=== PATIENT | male | born 1960 | race Caucasian/White ===

== ENCOUNTER 2020-09-28 01:16 | Emergency (ER) | payer BC ==
[~2020-09-28] VITALS: Ht 165.1 cm; Wt 98.9 kg
[~2020-09-28 01:16] MED LIST: ALDACTONE25 MG PO; ASPIRIN CHEW81 MG PO; COENZYME Q10; COZAAR100 MG PO; DOXYCYCLINE HY100 M4 PO; EFFEXOR XR75 MG PO; FUROSEMIDE40 MG PO; HYDRALAZINE HCL25 MG PO; NORVASC5 MG PO; PREDNISONE10 MG PO; Rosuvastatin Calcium PO; SPIRIVA18 MCG INH; SYMBICORT 16010.2 GM; TRAZODONE HCL50 MG PO; VICTOZA 2-0.6 MG/0.1 SQ; Z.0.HYDROCHLOROTHIA2 PO; Z.0.JANUMET XR 50-1; Z.0.LIPITOR20 MG PO; Z.0.LOTREL 5-20 MG1 PO; Z.0.PRILOSEC OTC20 M PO; [UNRECOGNIZED DRUG - CODE]; [UNRECOGNIZED DRUG - OTHER]; [UNRECOGNIZED DRUG - OTHER]; [UNRECOGNIZED DRUG - OTHER]
[2020-09-28] MEDS ORDERED: SODIUM CHLORIDE 0.9% 1000ML 1,000 ML IV ONE ×2 (01:30→02:00)
[2020-09-28 01:41] LABS: BASOPHILS # (AUTO) 0.1 (0.0-0.1); BASOPHILS % 0.9 % (0.0-1.0); EOSINOPHILS # (AUTO) 0.2 (0.0-0.4); EOSINOPHILS % 1.5 % (0.0-6.0); HEMATOCRIT 29.8 % (38.2-49.6); HEMOGLOBIN 9.4 g/dL (14.0-18.0); MEAN CORPUSCULAR HEMOGLOBIN 27.3 pg (28-32); MEAN CORPUSCULAR HGB CONC 31.5 g/dL (31-35); MEAN CORPUSCULAR VOLUME 86.6 fL (81-99); MONOCYTES # (AUTO) 1.2 (0.2-0.8); NEUTROPHILS # (AUTO) 11.7 (2.1-6.9); NEUTROPHILS % 75.3 % (38.7-80.0); PLATELET COUNT 395 x10e3/uL (140-360); RED BLOOD COUNT 3.44 x10e6/uL (4.3-5.7); RED CELL DISTRIBUTION WIDTH 13.6 % (11.7-14.4)
[2020-09-28 01:50] LABS: INR 0.88; PARTIAL THROMBOPLASTIN TIME 21.8 seconds (23.8-35.5); PROTHROMBIN TIME 12.5 seconds (11.9-14.5)
[2020-09-28 01:58] LABS: AMYLASE 51 U/L (25-125); LIPASE 44 U/L (8-78)
[2020-09-28 02:02] LABS: ANION GAP 15.7 mmol/L (8-16); CALCIUM 8.7 mg/dL (8.4-10.2); CREATININE, SERUM 1.44 mg/dL (0.72-1.25); POTASSIUM 4.7 mmol/L (3.5-5.1)
[2020-09-28] MEDS ORDERED: IOPAMIDOL 370 MG/ML 200 ML INFUS..BTL INJ ONE (02:33)
[2020-09-28] MEDS ORDERED: SODIUM CHLORIDE 0.9% 100 ML ONE (02:33)
== END 2020-09-28 06:06 | disposition other institution (70) ==
LOC: ER 01:26
DX: K62.5 Hemorrhage of anus and rectum (principal); D64.9 Anemia, unspecified; K57.30 Diverticulosis of large intestine without perforation or abscess without bleeding; Z20.822 Contact with and (suspected) exposure to COVID-19; I10 Essential (primary) hypertension; E78.5 Hyperlipidemia, unspecified; K21.9 Gastro-esophageal reflux disease without esophagitis; J45.909 Unspecified asthma, uncomplicated
CPT/HCPCS: 36415; 74174; 80053; 82150; 82550; 82553; 83605; 83690; 84484; 85025; 85610; 85730; 86850; 86900; 87040; 93005; 99284; J7030; J7050; Q9967; U0002

== ENCOUNTER 2024-07-06 15:30 | Inpatient (IN) | payer BC ==
[~2024-07-06] VITALS: Ht 165.1 cm; Wt 102.5 kg
[~2024-07-06 15:30] MED LIST changes: +ATORVASTATIN CA40 MG PO; +AZITHROMYCIN250 MG PO; +COZAAR25 MG PO; +FLOMAX0.4 MG PO; +GLIMEPIRIDE2 MG PO; +ISOSORBIDE MONO30 MG PO; +LASIX40 MG PO; +LOSARTAN POTAS100 MG PO; +METFORMIN HCL500 MG PO; +METOPROLOL SUCC25 MG PO; +PLAQUENIL200 MG PO; +SPIRONOLACTONE25 MG PO
[2024-07-06 16:16] LABS: BASOPHILS # (AUTO) 0.1 (0.0-0.1); BASOPHILS % 0.7 % (0.0-1.0); EOSINOPHILS # (AUTO) 0.2 (0.0-0.4); EOSINOPHILS % 1.8 % (0.0-6.0); HEMATOCRIT 39.1 % (38.2-49.6); HEMOGLOBIN 12.5 g/dL (14.0-18.0); LYMPHOCYTES # (AUTO) 0.8 (1.0-3.2); LYMPHOCYTES % 7.1 % (18.0-39.1); MEAN CORPUSCULAR HEMOGLOBIN 28.5 pg (28-32); MEAN CORPUSCULAR VOLUME 89.1 fL (81-99); MONOCYTES # (AUTO) 0.8 (0.2-0.8); MONOCYTES % 7.6 % (4.4-11.3); NEUTROPHILS # (AUTO) 8.9 (2.1-6.9); NEUTROPHILS % 82.4 % (38.7-80.0); PLATELET COUNT 362 x10e3/uL (140-360); RED BLOOD COUNT 4.39 x10e6/uL (4.3-5.7); RED CELL DISTRIBUTION WIDTH 13.2 % (11.7-14.4); WHITE BLOOD COUNT 10.78 x10e3/uL (4.8-10.8)
[2024-07-06] MEDS: FUROSEMIDE INJ 10 MG/ML 4 ML VIAL IV ONE (16:19)
[2024-07-06 16:43] LABS: ANION GAP 16.2 mmol/L (8-16); BILIRUBIN,TOTAL 0.4 mg/dL (0.2-1.2); CALCIUM 10.1 mg/dL (8.4-10.2); CREATININE, SERUM 1.35 mg/dL (0.72-1.25); POTASSIUM 4.2 mmol/L (3.5-5.1)
[2024-07-06 16:50] LABS: TROPONIN I 0.004 ng/mL (0-0.300)
[2024-07-06 18:00] VITALS: TEMP 98.8
[2024-07-06] MEDS: ASPIRIN 81 MG CHEW TAB PO ONE (18:15)
[2024-07-06 19:22] VITALS: PULSE 88; RESP 24; O2SAT 96
[2024-07-06 20:05] VITALS: PULSE 98; RESP 18
[2024-07-06 22:00] VITALS: BP_SYST 121; BP_DIAS 80; BP_DIAS 81; PULSE 95; RESP 22; TEMP 98.8; O2SAT 96
[2024-07-07] VITALS (12 sets, daily range): BP systolic 90–123; BP diastolic 56–80; PULSE 88–110; RESP 19–25; TEMP 97.9–99; O2SAT 91–100
[2024-07-07] MEDS: ALBUTEROL/IPRATROPIUM 3 ML NEB NEB SCH (00:29)
[2024-07-07] MEDS: BENZONATATE 100 MG CAP PO PRN (00:57)
[2024-07-07] MEDS: FUROSEMIDE INJ 10 MG/ML 4 ML VIAL IV ONE (00:58)
[2024-07-07] MEDS ORDERED: ENTRESTO 24 MG1 EACH (02:21)
[2024-07-07] MEDS ORDERED: PROTONIX20 MG PO (02:21)
[2024-07-07] MEDS ORDERED: CLOPIDOGREL75 MG PO (02:21)
[2024-07-07] MEDS ORDERED: VERQUVO5 MG PO (02:21)
[2024-07-07] MEDS ORDERED: ROSUVASTATIN CA20 MG (02:22)
[2024-07-07] MEDS ORDERED: ALBUTEROL/IPRATROPIUM 3 ML NEB NEB SCH (03:00)
[2024-07-07 05:37] LABS: BASOPHILS # (AUTO) 0.1 (0.0-0.1); BASOPHILS % 0.7 % (0.0-1.0); EOSINOPHILS # (AUTO) 0.1 (0.0-0.4); EOSINOPHILS % 1.5 % (0.0-6.0); HEMATOCRIT 35.5 % (38.2-49.6); HEMOGLOBIN 11.3 g/dL (14.0-18.0); LYMPHOCYTES % 10.5 % (18.0-39.1); MEAN CORPUSCULAR HEMOGLOBIN 28.3 pg (28-32); MEAN CORPUSCULAR HGB CONC 31.8 g/dL (31-35); MONOCYTES # (AUTO) 0.9 (0.2-0.8); MONOCYTES % 9.6 % (4.4-11.3); NEUTROPHILS % 77.4 % (38.7-80.0); PLATELET COUNT 310 x10e3/uL (140-360); RED BLOOD COUNT 3.99 x10e6/uL (4.3-5.7); RED CELL DISTRIBUTION WIDTH 13.2 % (11.7-14.4); WHITE BLOOD COUNT 9.05 x10e3/uL (4.8-10.8)
[2024-07-07 06:06] LABS: CALCIUM 9.2 mg/dL (8.4-10.2); CREATININE, SERUM 1.42 mg/dL (0.72-1.25)
[2024-07-07 06:45] LABS: TROPONIN I 0.001 ng/mL (0-0.300)
[2024-07-07 12:27] LABS: TROPONIN I 0.007 ng/mL (0-0.300)
[2024-07-07] MEDS: FUROSEMIDE INJ 10 MG/ML 4 ML VIAL IV SCH (15:12)
[2024-07-07] MEDS ORDERED: POLYETHYLENE GLYCOL 3350 17 GM PACK PO PRN (18:15)
[2024-07-07] MEDS ORDERED: ACETAMINOPHEN 325 MG TAB PO PRN (18:15)
[2024-07-07] MEDS ORDERED: HYDRALAZINE HCL 20 MG/ML VIAL IV PRN (18:15)
[2024-07-07] MEDS ORDERED: TEMAZEPAM 7.5 MG CAP PO PRN ×2 (18:15→21:00)
[2024-07-07] MEDS ORDERED: DEXTROSE 50% SYRINGE 50 ML IV PRN (18:15)
[2024-07-07] MEDS: METHYLPREDNISOLONE SOD SUCC 40 MG/ML VIAL 1ML IV ONE (18:21)
[2024-07-07] MEDS: ALBUTEROL/IPRATROPIUM 3 ML NEB NEB PRN (20:15)
[2024-07-07] MEDS: BUDESONIDE/FORMOTEROL 160/4.5MCG INHALER INH SCH (20:16)
[2024-07-07] MEDS ORDERED: TRAZODONE HCL 50 MG TAB PO PRN (21:00)
[2024-07-07] MEDS: INSULIN REGULAR, HUMAN 100 UNIT/1 ML SQ SCH (21:00)
[2024-07-07] MEDS: ATORVASTATIN 40 MG TAB PO SCH (21:18)
[2024-07-07] MEDS: SACUBITRIL/VALSARTAN 24MG/26MG 1 EA TAB PO SCH (21:18)
[2024-07-07] MEDS: TRAZODONE HCL 50 MG TAB PO PRN (21:18)
[2024-07-07] MEDS: GUAIFENESIN/CODEINE 5 ML LIQD PO PRN (21:18)
[2024-07-08] VITALS (9 sets, daily range): BP systolic 90–133; BP diastolic 59–81; PULSE 97–113; RESP 19–23; TEMP 97.6–98.5; O2SAT 92–97
[2024-07-08 05:33] LABS: BASOPHILS % 0.4 % (0.0-1.0); HEMATOCRIT 36.4 % (38.2-49.6); HEMOGLOBIN 11.6 g/dL (14.0-18.0); LYMPHOCYTES # (AUTO) 0.8 (1.0-3.2); LYMPHOCYTES % 9.9 % (18.0-39.1); MEAN CORPUSCULAR HEMOGLOBIN 28.2 pg (28-32); MEAN CORPUSCULAR HGB CONC 31.9 g/dL (31-35); MEAN CORPUSCULAR VOLUME 88.6 fL (81-99); MONOCYTES # (AUTO) 0.5 (0.2-0.8); MONOCYTES % 5.9 % (4.4-11.3); NEUTROPHILS # (AUTO) 6.6 (2.1-6.9); NEUTROPHILS % 83.3 % (38.7-80.0); PLATELET COUNT 352 x10e3/uL (140-360); RED BLOOD COUNT 4.11 x10e6/uL (4.3-5.7); RED CELL DISTRIBUTION WIDTH 13.3 % (11.7-14.4); WHITE BLOOD COUNT 7.95 x10e3/uL (4.8-10.8)
[2024-07-08 06:11] LABS: ALBUMIN 3.6 g/dL (3.5-5.0); ANION GAP 15.3 mmol/L (8-16); BILIRUBIN,TOTAL 0.2 mg/dL (0.2-1.2); CALCIUM 9.5 mg/dL (8.4-10.2); CHOL/HDL RATIO 2.4 (3.9-4.7); CREATININE, SERUM 1.41 mg/dL (0.72-1.25); MAGNESIUM 2.1 MG/DL (1.3-2.1); PHOSPHORUS 3.4 MG/DL (2.3-4.7); POTASSIUM 4.3 mmol/L (3.5-5.1); TOTAL PROTEIN 7.3 g/dL (6.5-8.1)
[2024-07-08 06:19] LABS: FREE T4 (FREE THYROXINE) 1.02 ng/dL (0.8-1.8); THYROID STIMULATING HORMONE 0.356 uIU/mL (0.350-4.940)
[2024-07-08] MEDS: GLIMEPIRIDE 2 MG TAB PO SCH (09:00)
[2024-07-08] MEDS: CLOPIDOGREL BISULFATE 75 MG TAB PO SCH (09:01)
[2024-07-08] MEDS: PANTOPRAZOLE SOD 40 MG TABEC PO SCH (09:01)
[2024-07-08] MEDS: ASPIRIN 81 MG CHEW TAB PO SCH (09:01)
[2024-07-08] MEDS: TAMSULOSIN HCL 0.4 MG CAP PO SCH (09:01)
[2024-07-08] MEDS: HYDROXYCHLOROQUINE SULFATE 200 MG TAB PO SCH (09:02)
[2024-07-08] MEDS: METFORMIN HCL 500 MG TAB PO SCH (09:02)
[2024-07-08] MEDS: DOCUSATE SODIUM 100 MG CAP PO SCH (09:02)
[2024-07-08] MEDS: METHYLPREDNISOLONE SOD SUCC 125 MG/2ML VIAL IV ONE (09:30)
[2024-07-08] MEDS: TEMAZEPAM 15 MG CAP PO PRN (21:24)
[2024-07-09] VITALS (8 sets, daily range): BP systolic 99–124; BP diastolic 55–82; PULSE 78–117; RESP 20–21; TEMP 97.9–98.2; O2SAT 94–97
[2024-07-09] MEDS: METHYLPREDNISOLONE SOD SUCC 125 MG/2ML VIAL IV ONE (11:26)
[2024-07-09] MEDS: BENZONATATE 100 MG CAP PO SCH (11:26)
[2024-07-09] MEDS: GUAIFENESIN/CODEINE 5 ML LIQD PO STA (11:26)
[2024-07-09] MEDS: ONDANSETRON HCL INJ 2MG/ML 2ML 2 MG/ML VIAL IV PRN (19:55)
[2024-07-09] MEDS: METHYLPREDNISOLONE SOD SUCC 40 MG/ML VIAL 1ML IV SCH (21:25)
[2024-07-10] VITALS (10 sets, daily range): BP systolic 100–132; BP diastolic 61–75; PULSE 68–98; RESP 18–21; TEMP 98.1–98.8; O2SAT 94–100
[2024-07-10 07:12] LABS: BASOPHILS % 0.2 % (0.0-1.0); HEMATOCRIT 39.9 % (38.2-49.6); HEMOGLOBIN 12.6 g/dL (14.0-18.0); LYMPHOCYTES % 5.1 % (18.0-39.1); MEAN CORPUSCULAR HEMOGLOBIN 28.4 pg (28-32); MEAN CORPUSCULAR HGB CONC 31.6 g/dL (31-35); MEAN CORPUSCULAR VOLUME 89.9 fL (81-99); MONOCYTES # (AUTO) 0.5 (0.2-0.8); MONOCYTES % 2.4 % (4.4-11.3); NEUTROPHILS # (AUTO) 17.2 (2.1-6.9); NEUTROPHILS % 91.7 % (38.7-80.0); PLATELET COUNT 432 x10e3/uL (140-360); RED BLOOD COUNT 4.44 x10e6/uL (4.3-5.7); RED CELL DISTRIBUTION WIDTH 13.5 % (11.7-14.4); WHITE BLOOD COUNT 18.78 x10e3/uL (4.8-10.8)
[2024-07-10 07:33] LABS: ANION GAP 16.2 mmol/L (8-16); BILIRUBIN,TOTAL 0.2 mg/dL (0.2-1.2); CALCIUM 9.4 mg/dL (8.4-10.2); CREATININE, SERUM 1.73 mg/dL (0.72-1.25); POTASSIUM 5.2 mmol/L (3.5-5.1); TOTAL PROTEIN 7.9 g/dL (6.5-8.1)
[2024-07-10] MEDS: GUAIFENESIN/CODEINE 5 ML LIQD PO PRN (13:53)
[2024-07-11] VITALS (10 sets, daily range): BP systolic 112–151; BP diastolic 59–88; PULSE 80–106; RESP 17–21; TEMP 97.7–98.2; O2SAT 96–100
[2024-07-11 06:50] LABS: ANION GAP 16.6 mmol/L (8-16); CALCIUM 9.1 mg/dL (8.4-10.2); CREATININE, SERUM 1.44 mg/dL (0.72-1.25); POTASSIUM 4.6 mmol/L (3.5-5.1)
[2024-07-11] MEDS: METHYLPREDNISOLONE SOD SUCC 40 MG/ML VIAL 1ML IV SCH (20:38)
[2024-07-11 21:37] LABS: BILIRUBIN,URINE NEGATIVE (NEGATIVE); CLARITY,URINE CLEAR (CLEAR); COLOR,URINE YELLOW (YELLOW); KETONES,URINE NEGATIVE (NEGATIVE); LEUKOCYTE ESTERASE ,URINE NEGATIVE (NEGATIVE); NITRITE,URINE NEGATIVE (NEGATIVE); PH,URINE 6 (5 - 7); PROTEIN,URINE DIPSTICK NEGATIVE (NEGATIVE); URINE UROBILINOGEN 0.2 mg/dL (0.2 - 1)
[2024-07-11 21:38] LABS: GLUCOSE, URINE 1+ (NEGATIVE)
[2024-07-11 21:55] LABS: RBC,URINE 0-5 /HPF (0-5); WBC,URINE (MAN) 0-5 /HPF (0-5)
[2024-07-11 21:56] LABS: EPITHELIAL CELLS,URINE FEW /LPF
[2024-07-12] VITALS (9 sets, daily range): BP systolic 128–150; BP diastolic 71–88; PULSE 88–115; RESP 18–22; TEMP 97.5–98.2; O2SAT 94–99
[2024-07-12 07:05] LABS: BASOPHILS # (AUTO) 0.1 (0.0-0.1); BASOPHILS % 0.3 % (0.0-1.0); HEMATOCRIT 36.7 % (38.2-49.6); HEMOGLOBIN 11.8 g/dL (14.0-18.0); LYMPHOCYTES # (AUTO) 1.5 (1.0-3.2); LYMPHOCYTES % 7.3 % (18.0-39.1); MEAN CORPUSCULAR HEMOGLOBIN 28.2 pg (28-32); MEAN CORPUSCULAR HGB CONC 32.2 g/dL (31-35); MEAN CORPUSCULAR VOLUME 87.8 fL (81-99); MONOCYTES # (AUTO) 1.1 (0.2-0.8); MONOCYTES % 5.2 % (4.4-11.3); NEUTROPHILS # (AUTO) 17.1 (2.1-6.9); NEUTROPHILS % 85.3 % (38.7-80.0); PLATELET COUNT 401 x10e3/uL (140-360); RED BLOOD COUNT 4.18 x10e6/uL (4.3-5.7); RED CELL DISTRIBUTION WIDTH 13.7 % (11.7-14.4); WHITE BLOOD COUNT 20.02 x10e3/uL (4.8-10.8)
[2024-07-12 07:40] LABS: ALBUMIN 3.7 g/dL (3.5-5.0); ALBUMIN/GLOBULIN RATIO 1.2 (0.8-2.0); ANION GAP 14.6 mmol/L (8-16); BILIRUBIN,TOTAL 0.2 mg/dL (0.2-1.2); CALCIUM 9.3 mg/dL (8.4-10.2); CREATININE, SERUM 1.36 mg/dL (0.72-1.25); PHOSPHORUS 3.6 MG/DL (2.3-4.7); POTASSIUM 4.6 mmol/L (3.5-5.1); TOTAL PROTEIN 6.9 g/dL (6.5-8.1)
[2024-07-12] MEDS: ENOXAPARIN SOD INJ 40 MG/0.4 ML SYR SC SCH (16:55)
[2024-07-12] MEDS: CARVEDILOL 3.125 MG TAB PO SCH (18:07)
[2024-07-12] MEDS: ZOLPIDEM TARTRATE 5 MG TAB PO PRN (21:24)
[2024-07-13] VITALS (7 sets, daily range): BP systolic 122–145; BP diastolic 77–91; PULSE 66–103; RESP 18–22; TEMP 97–97.7; O2SAT 94–97
[2024-07-13 05:34] LABS: BASOPHILS # (AUTO) 0.1 (0.0-0.1); BASOPHILS % 0.4 % (0.0-1.0); HEMATOCRIT 37.3 % (38.2-49.6); LYMPHOCYTES # (AUTO) 1.6 (1.0-3.2); LYMPHOCYTES % 8.4 % (18.0-39.1); MEAN CORPUSCULAR HEMOGLOBIN 28.1 pg (28-32); MEAN CORPUSCULAR HGB CONC 32.2 g/dL (31-35); MEAN CORPUSCULAR VOLUME 87.4 fL (81-99); MONOCYTES # (AUTO) 0.9 (0.2-0.8); MONOCYTES % 4.4 % (4.4-11.3); NEUTROPHILS # (AUTO) 16.3 (2.1-6.9); NEUTROPHILS % 84.1 % (38.7-80.0); PLATELET COUNT 397 x10e3/uL (140-360); RED BLOOD COUNT 4.27 x10e6/uL (4.3-5.7); RED CELL DISTRIBUTION WIDTH 13.7 % (11.7-14.4)
[2024-07-13 06:05] LABS: ALBUMIN 3.6 g/dL (3.5-5.0); ALBUMIN/GLOBULIN RATIO 1.2 (0.8-2.0); ANION GAP 13.7 mmol/L (8-16); BILIRUBIN,TOTAL 0.2 mg/dL (0.2-1.2); CALCIUM 9.5 mg/dL (8.4-10.2); CREATININE, SERUM 1.56 mg/dL (0.72-1.25); POTASSIUM 4.7 mmol/L (3.5-5.1); TOTAL PROTEIN 6.6 g/dL (6.5-8.1)
[2024-07-13 09:52] LABS: CREATININE,URINE RANDOM 68.92 mg/dL (63-166); TOTAL PROTEIN, URINE 7.7 mg/dL (1-14)
[2024-07-13] MEDS ORDERED: AZITHROMYCIN250 MG PO (13:52)
[2024-07-13] MEDS ORDERED: ACETAMINOPHEN325 M1 PO (13:52)
[2024-07-13] MEDS ORDERED: BENZONATATE100 MG PO (13:52)
[2024-07-13] MEDS ORDERED: ONDANSETRON ODT4 MG PO (13:52)
[2024-07-13] MEDS ORDERED: PREDNISONE5 MG PO (13:52)
[2024-07-13] MEDS ORDERED: ALBUTEROL0.63 MG/3 NEB (13:52)
[2024-07-13] MEDS ORDERED: COREG3.125 MG PO (13:52)
== END 2024-07-13 15:19 | disposition home or self-care (01) | DRG 291 ==
LOC: ER 16:29 → ERHOLD 17:03 → MED/SURG 20:35 → MED/SURG2 07-12 19:40
PROVIDERS: ADMIT Internal Medicine; ATTEND Internal Medicine
DX: I13.0 Hypertensive heart and chronic kidney disease with heart failure and stage 1 through stage 4 chronic kidney disease, or unspecified chronic kidney disease (principal); I50.23 Acute on chronic systolic (congestive) heart failure; J96.21 Acute and chronic respiratory failure with hypoxia; N17.9 Acute kidney failure, unspecified; J45.901 Unspecified asthma with (acute) exacerbation; J44.1 Chronic obstructive pulmonary disease with (acute) exacerbation; I27.20 Pulmonary hypertension, unspecified; E11.65 Type 2 diabetes mellitus with hyperglycemia; E11.22 Type 2 diabetes mellitus with diabetic chronic kidney disease; E78.49 Other hyperlipidemia; N18.30 Chronic kidney disease, stage 3 unspecified; D63.1 Anemia in chronic kidney disease; I42.8 Other cardiomyopathies; J43.9 Emphysema, unspecified; K21.9 Gastro-esophageal reflux disease without esophagitis; M06.9 Rheumatoid arthritis, unspecified; G47.09 Other insomnia; F32.A Depression, unspecified; R53.81 Other malaise; Z79.82 Long term (current) use of aspirin; Z79.84 Long term (current) use of oral hypoglycemic drugs; Z79.51 Long term (current) use of inhaled steroids; Z95.810 Presence of automatic (implantable) cardiac defibrillator; Z87.891 Personal history of nicotine dependence
CPT/HCPCS: 36415; 71045; 71250; 76770; 80048; 80053; 80061; 81001; 82550; 82570; 82948; 83036; 83735; 83880; 84100; 84156; 84439; 84443; 84484; 85025; 93005; 93306; 94640; 94799; 96372; 99252; 99284; J0696; J1650; J1940; J2405; J2470; J2543; J2919; J7050